=== PATIENT | female | born 1955 | race Caucasian/White ===

== ENCOUNTER → 2021-09-03 10:24 | Outpatient (CLI) | payer OTHER, SELFPAY ==
--- NOTE | 2021-09-03 10:26 | DI.ECHO.S_ITS ---
[facility] +---------+ : : [address] : : : : [id number] : : : : Phone: [phone]---------+ Echocardiogram Report + + :Name: ANASTACIA ACEVES Study Date: 09/03/2021 Height: 67 in : :[facility] ReadingLocation: Weight: 300 lb : : Gender: Female BSA: 2.4 m2 : :: 1955 Age: 66 yrs BP: 162/84 mmHg: :Reason For Study: SHORTNESS OF BREATH : :Ordering Physician: SHAILA, : :MARYELLEN Bone Performed By: Marli Henriquez : :Referring: MARYELLEN GOFF : + + Interpretation Summary The ejection fraction is estimated to be 65-70%. Normal diastolic function. The right ventricular systolic function is normal. Mild tricuspid regurgitation. Normal PASP. The proximal ascending aorta is mildly dilated. Procedure: A two-dimensional transthoracic echocardiogram with color flow and Doppler was performed. The study quality was technically adequate. A contrast injection of Definity was performed to improve assessment of LV function. The patient was in sinus rhythm with heart rates between 62-70 bpm during the exam. Left Ventricle: The left ventricle is normal in size and wall thickness. The ejection fraction is estimated to be 65-70%. Diastolic parameters suggest probable normal left ventricular diastolic function and normal filling pressures. Right Ventricle: The right ventricle is grossly normal size. The right ventricular systolic function is normal. Atria: The left atrial size is normal. Right atrial size is normal. There is no Doppler evidence for an interatrial shunt. Mitral Valve: The mitral valve is normal in structure and function. There is mild mitral regurgitation. Aortic Valve: The aortic valve is grossly normal. The aortic valve opens well. There is no aortic valve stenosis. No aortic regurgitation is present. Tricuspid Valve: The tricuspid valve is normal in structure and function. There is mild tricuspid regurgitation. PASP is approximately 30 to 35 mmHg. Pulmonic Valve: The pulmonic valve is not well visualized. There is no pulmonic valvular regurgitation. Great Vessels: The aortic root is normal size. The ascending aorta is mildly enlarged. The inferior vena cava was not well visualized. Pericardium/ Pleura There is no pericardial effusion. There is no pleural effusion. MMode/2D Measurements & Calculations LVIDd: 4.4 cm LVOT diam: 2.1 cm LVIDs: 3.2 cm Ao root diam: 3.2 cm FS: 27.6 % asc Aorta Diam: 3.5 cm IVSd: 0.99 cm Ao Arch Diam (Prox Trans): 3.1 cm LVPWd: 0.91 cm LV peralta. diameter/BSA (cm/m^2): 1.8 LV sys. diameter/BSA (cm/m^2): 1.3 LA A2 area: 19.5 cm2 RA long axis: 4.8 cm LA A4 area: 17.7 cm2 RA area: 19.1 cm2 LA length (vol): 5.6 cm RA vol: 64.5 ml LA vol: 52.1 ml RA : 26.9 ml/m2 LA vol index: 21.7 ml/m2 TAPSE: 2.2 cm Doppler Measurements & Calculations Ao V2 max: 156.1 cm/sec LVOT Max Abel: 102.9 cm/sec Ao V2 mean: 103.3 cm/sec LV V1 max P.2 mmHg Ao max P.7 mmHg LV V1 VTI: 25.8 cm Ao mean P.9 mmHg ARIC(I,D): 2.6 cm2 Ao V2 VTI: 35.0 cm ARIC(V,D): 2.3 cm2 sev ratio: 0.74 ARIC indexed to BSA (cm^2/m^2): 1.1 MV E max abel: 100.1 cm/sec TR max abel: 258.8 cm/sec MV A max abel: 86.8 cm/sec TR max P.8 mmHg MV E/A: 1.2 PA V2 max: 129.0 cm/sec Med Peak E' Abel: 8.7 cm/sec PA V2 mean: 92.6 cm/sec E/E' med: 11.5 PA mean P.8 mmHg Lat Peak E' Abel: 7.8 cm/sec PA pr(Accel): 12.2 mmHg E/E' lat: 12.9 E/e' average: 12.2 MV dec time: 0.27 sec SV(LVOT): 90.6 ml Reading Physician:02:51 PM
--- NOTE | 2021-09-04 17:46 | DI.NM.S_ITS ---
DATE OF SERVICE: PROCEDURE: Pharmacological perfusion study. DATE OF STUDY: 09/03/2021 INDICATIONS: Palpitations, shortness of breath, underlying hypertension and hyperlipidemia. RADIOPHARMACEUTICAL: 25.6 millicurie technetium-99m Myoview IV was injected at stress and 25.7 millicurie technetium-99m Myoview IV was injected at rest. It was a two day protocol. CARDIAC STRESS: The patient underwent IV Lexiscan perfusion study under the supervision of an attending staff as per standard IV Lexiscan protocol. Baseline rhythm was sinus. During stress, there were no convincing ischemic changes or significant arrhythmias seen. During Lexiscan infusion, patient felt nausea and stomach cramps. No chest pain. Remained hemodynamically stable. Baseline blood pressure 122/78 and peak blood pressure reported to be 158/76. Baseline heart rate 69 beats per minute. Maximum heart rate 97 beats per minute. RAW DATA: The patient's weight is 304 pounds. Significant breast shadow was seen. There was increased subdiaphragmatic activity. GATED STUDY: Resting LV ejection fraction 76 and stress LV ejection fraction 82 percent without any significant wall motion abnormalities. Resting end- diastolic volume 108 mL. TID ratio 1.19, which is within normal limits. Lung/heart ratio 0.38 which is within normal limits. MYOCARDIAL PERFUSION SCAN: Please note this patient does not have any prone images. Stress supine and resting supine images were compared to each other. There appears to be predominantly fixed, small size, mildly decreased perfusion of basal inferior wall, as well as distal anterior septum. I do not see any significant reversible burden. CONCLUSION: 1. No obvious reversible ischemia. 2. The patient has predominantly fixed, small size, mildly decreased perfusion of basal inferior wall, as well as distal anterior septum. No significant perfusion defect in the anterior wall which goes against the diagnosis of left anterior descending disease. The patient's weight is 304 pounds. Significant breast shadow seen, as well as increased subdiaphragmatic activity during raw images. On gated study, stress LV ejection fraction 82 percent without any wall motion abnormalities. Hence, most likely we are dealing with tissue attenuation artifact. However, in absence of prone images, cannot rule out small infarction in that area for sure but less likely. In absence of reversible ischemia and preserved left ventricular function, overall, this is a low-risk myocardial perfusion scan. Correlate clinically. [address] - LILIANA/seun/leticia doc#: [id number]/job#: [id number] dd: 09/04/2021 17:09:00 dt: 09/04/2021 17:31:00 DICTATING /COPIES TO: Kike Dueñas MD COPIES MNE: JOHANN;
== END ==
PROVIDERS: Referring Provider Internal Medicine Cardiovascular Disease; Visit Provider Internal Medicine Cardiovascular Disease
DX: I07.1 Rheumatic tricuspid insufficiency (principal); I77.89 Other specified disorders of arteries and arterioles; R06.02 Shortness of breath; R00.2 Palpitations; I10 Essential (primary) hypertension; E78.5 Hyperlipidemia, unspecified
CPT/HCPCS: 78452; 93017; 93306; A9502; J2785; Q9957

== ENCOUNTER → 2022-01-03 08:22 | Outpatient (CLI) | payer OTHER, SELFPAY ==
[2022-01-03 09:28] LABS: Add Manual Diff / Slide Review NO; Basophils Absolute Auto 0 /uL (0-100); Basophils Percent Auto 0.4 % (0-2); Eosinophils Absolute Auto 400 /uL (0-450); Eosinophils Percent Auto 4.4 % (2-4); Hematocrit 40.9 % (36-46); Hemoglobin 13.8 g/dL (12.0-16.0); Lymphocytes Absolute Auto 1600 /uL (1100-4500); Mean Corpuscular HGB Conc 33.6 % (30-36); Mean Corpuscular Hemoglobin 30.3 PG (26-34); Monocytes Absolute Auto 500 /uL (0-900); Monocytes Percent Auto 5.8 % (3-14); Neutrophils Absolute Auto 6000 /uL (1500-7000); Neutrophils Percent Auto 70.4 % (50-75); Platelet Count 218 X10^3/uL (150-400); Red Blood Cell Count 4.54 X10^6/uL (4.0-5.2); Red Cell Distribution Width 13.9 % (11.6-14.8); White Blood Cell Count 8.5 X10^3/uL (4.5-11.0)
[2022-01-03 09:38] LABS: Alanine Aminotransferase 36 IU/L (<35); Albumin 4.4 g/dL (3.5-5.0); Albumin Globulin Ratio 1.5 (1.0-2.8); Alkaline Phosphatase 86 U/L (38-126); Aspartate Aminotransferase 35 IU/L (14-36); BUN Creatinine Ratio 23.1 (6-22); Bilirubin Total 0.8 mg/dL (0.2-1.3); Blood Urea Nitrogen 15 mg/dL (7-17); Calcium 8.9 mg/dL (8.4-10.2); Carbon Dioxide 31 mmol/L (22-32); Chloride 103 mmol/L (98-107); Cholesterol 206 mg/dL (140-199); Estimated Glomerular Filt Rate > 60.0 mL/min (>60); Globulin 2.9 g/dL (1.7-4.1); Glucose 102 mg/dL (80-110); HDL Cholesterol 44 mg/dL (40-60); HEMOLYSIS 20 (0-50); LDL Cholesterol Calculated 121 mg/dL (<100); Potassium 4.2 mmol/L (3.4-5.1); Sodium 139 mmol/L (137-145); Total Protein 7.3 g/dL (6.3-8.2); Triglycerides 206 mg/dL (35-150)
== END ==
PROVIDERS: PCP Physician Assistant; Referring Provider Nurse Practitioner Acute Care; Visit Provider Nurse Practitioner Acute Care
DX: E78.5 Hyperlipidemia, unspecified (principal)
CPT/HCPCS: 36415; 80053; 80061; 85025

== ENCOUNTER → 2023-05-01 08:45 | Outpatient (CLI) | payer OTHER, SELFPAY ==
[2023-05-01 10:46] LABS: BUN Creatinine Ratio 27.5 (6-22); Blood Urea Nitrogen 19 mg/dL (7-17); Calcium 8.9 mg/dL (8.4-10.2); Carbon Dioxide 30 mmol/L (22-32); Chloride 105 mmol/L (98-107); Estimated Glomerular Filt Rate > 60 mL/min (>60); Glucose 116 mg/dL (80-110); HEMOLYSIS < 15 (0-50); Sodium 141 mmol/L (137-145)
== END ==
PROVIDERS: Internal Medicine Cardiovascular Disease; PCP Physician Assistant; Referring Provider Nurse Practitioner Acute Care; Visit Provider Nurse Practitioner Acute Care
DX: I10 Essential (primary) hypertension (principal)
CPT/HCPCS: 36415; 80048

== ENCOUNTER → 2023-08-19 06:46 | Outpatient (CLI) | payer OTHER, SELFPAY ==
[2023-08-19 08:09] LABS: Add Manual Diff / Slide Review NO; Basophils Absolute Auto 0 /uL (0-100); Basophils Percent Auto 0.5 % (0-2); Eosinophils Absolute Auto 400 /uL (0-450); Eosinophils Percent Auto 4.3 % (2-4); Hematocrit 38.5 % (36-46); Hemoglobin 13.3 g/dL (12.0-16.0); Lymphocytes Absolute Auto 2000 /uL (1100-4500); Lymphocytes Percent Auto 23.9 % (25-40); Mean Corpuscular HGB Conc 34.5 % (30-36); Mean Corpuscular Hemoglobin 30.4 PG (26-34); Mean Corpuscular Volume 88.4 fL (80-100); Monocytes Absolute Auto 500 /uL (0-900); Monocytes Percent Auto 5.8 % (3-14); Neutrophils Absolute Auto 5400 /uL (1500-7000); Neutrophils Percent Auto 65.5 % (50-75); Platelet Count 200 X10^3/uL (150-400); Red Blood Cell Count 4.36 X10^6/uL (4.0-5.2); Red Cell Distribution Width 13.8 % (11.6-14.8); White Blood Cell Count 8.3 X10^3/uL (4.5-11.0)
[2023-08-19 08:23] LABS: Hemoglobin A1C% w Est Avg Glu 5.1 % (4.0-6.0)
[2023-08-19 08:48] LABS: Alanine Aminotransferase 29 IU/L (<35); Albumin 4.1 g/dL (3.5-5.0); Albumin Globulin Ratio 1.5 (1.0-2.8); Alkaline Phosphatase 95 U/L (38-126); Aspartate Aminotransferase 27 IU/L (14-36); BUN Creatinine Ratio 27.9 (6-22); Bilirubin Total 0.4 mg/dL (0.2-1.3); Blood Urea Nitrogen 24 mg/dL (7-17); Calcium 9.4 mg/dL (8.4-10.2); Carbon Dioxide 26 mmol/L (22-32); Chloride 104 mmol/L (98-107); Cholesterol 153 mg/dL (140-199); Estimated Glomerular Filt Rate > 60 mL/min (>60); Globulin 2.7 g/dL (1.7-4.1); Glucose 102 mg/dL (80-110); HDL Cholesterol 58 mg/dL (40-60); HEMOLYSIS < 15 (0-50); LDL Cholesterol Calculated 68 mg/dL (<100); Potassium 4.4 mmol/L (3.4-5.1); Sodium 138 mmol/L (137-145); Total Protein 6.8 g/dL (6.3-8.2); Triglycerides 133 mg/dL (35-150)
[2023-08-19 09:12] LABS: TSH w/ Reflex to FT4 2.57 uIU/mL (0.47-4.68)
== END ==
PROVIDERS: PCP Physician Assistant; Referring Provider Internal Medicine Cardiovascular Disease; Visit Provider Internal Medicine Cardiovascular Disease
DX: I10 Essential (primary) hypertension (principal); E78.5 Hyperlipidemia, unspecified; R06.02 Shortness of breath; Z13.1 Encounter for screening for diabetes mellitus; R00.2 Palpitations
CPT/HCPCS: 36415; 80053; 80061; 83036; 83735; 84443; 85025

== ENCOUNTER → 2023-11-24 08:02 | Outpatient (CLI) | payer OTHER, SELFPAY | PROVIDERS: PCP Physician Assistant; Referring Provider Internal Medicine; Visit Provider Internal Medicine | DX: R06.02 Shortness of breath (principal); Z87.891 Personal history of nicotine dependence; J98.8 Other specified respiratory disorders | CPT/HCPCS: 94060; 94726; 94729 ==